=== PATIENT | female | born 2000 | race Caucasian/White ===

== ENCOUNTER 2022-10-19 14:31 | Emergency (ER) | payer SELFPAY ==
[~2022-10-19] VITALS: Ht 160 cm; Wt 61.2 kg
[2022-10-19 15:00] VITALS: BP 101/63; PULSE 60; RESP 18; TEMP 97.6; O2SAT 98
[2022-10-19] MEDS ORDERED: METR0.7510 VG (16:12)
[2022-10-19] MEDS ORDERED: METR-435 PO (16:12)
[2022-10-19 16:18] VITALS: BP 110/63; PULSE 60; RESP 18; TEMP 97.6; O2SAT 98
--- NOTE | 2022-10-19 16:18 | NUR ---
Patient discharged with v/s stable. Written and verbal after care instructions FOR [facility]AG[facility] given and explained. Patient alert, oriented and verbalized understanding of instructions. Ambulatory with steady gait. All questions addressed prior to discharge. ID band removed. Patient advised to follow up with PMD. Rx of METRONIDAZOLE given. Opportunity to ask questions provided and answered.
--- NOTE | 2022-10-19 19:03 | NUR ---
The patient's care was reviewed and supervised by Carmen Watson RN, RN.
== END 2022-10-19 16:18 | disposition home or self-care (01) ==
LOC: MED 14:31
DX: N76.0 Acute vaginitis (principal); Z79.2 Long term (current) use of antibiotics
CPT/HCPCS: 99283